=== PATIENT | male | born 1995 | race Caucasian/White ===

== ENCOUNTER 2018-04-02 17:37 | Emergency (ER) | payer OTHER, SELFPAY ==
[2018-04-02 17:39] VITALS: BP 162/94; PULSE 84; RESP 12; TEMP 36.9; O2SAT 100
--- NOTE | 2018-04-02 18:01 | ED.WOUNDLAC ---
HPI - Wound/Laceration <BENI Mabry - Last Filed: 04/02/18 18:44> General Chief Complaint: Wound/Laceration Stated Complaint: STEPPED ON JEANNIE NAIL RT FOOT Time Seen by Provider: 04/02/18 17:52 Source: patient Mode of arrival: ambulatory Limitations: no limitations History of Present Illness HPI narrative: Patient Presents with chief complaint of stepping on a jeannie nail today. He states it was a 5 in nail through the 2 in of wood through his boat into the bottom of his right foot. He is requesting tetanus as he does not know when his last one was. He states that it happened today while at work. He denies any fevers nausea vomiting diarrhea. He denies any numbness or tingling in his foot. He states that he does not wantaging or antibiotics, just wants a tetanus. Related Data Home Medications Medication Instructions Recorded Confirmed No Known Home Medications 04/02/18 04/02/18 Allergies Allergy/AdvReac Type Severity Reaction Status Date / Time No Known Drug Allergies Allergy Verified 04/02/18 17:42 Review of Systems <[facility] - Last Filed: 04/02/18 18:44> Review of Systems GENERAL: Denies chills, fatigue, malaise, fever, sweats. HEENT: Denies sinus pain, ear pain, sore throat, difficulty swallowing, dizziness. RESPIRATORY: Denies dyspnea, cough, wheezing, hemoptysis, sputum. CARDIOVASCULAR: Denies chest pain, palpitations, orthopnea, edema, GASTROINTESTINAL: Denies nausea, vomiting, abdominal pain, diarrhea, constipation, melena. : Denies dysuria, frequency, incontinence, hematuria, urinary retention. MUSCULOSKELETAL: see HPI SKIN: See HPI NEUROLOGIC: Denies weakness, headache, numbness, change in speech, confusion, seizures, incoordination. PSYCHIATRIC: No concerning psychosocial issues. 12 point review of systems is negative except for those stated above Exam <[facility] - Last Filed: 04/02/18 18:44> Narrative Exam Narrative: GENERAL: Denies chills, fatigue, malaise, fever, sweats. HEENT: Denies sinus pain, ear pain, sore throat, difficulty swallowing, dizziness. RESPIRATORY: Denies dyspnea, cough, wheezing, hemoptysis, sputum. CARDIOVASCULAR: Denies chest pain, palpitations, orthopnea, edema, GASTROINTESTINAL: Denies nausea, vomiting, abdominal pain, diarrhea, constipation, melena. : Denies dysuria, frequency, incontinence, hematuria, urinary retention. MUSCULOSKELETAL: Full range of motion noted right foot. Positive pedal pulses right foot. Capillary refill less than 2 sec all toes right foot. No palpable foreign bodies. SKIN: Small puncture wound 2 mm right ball of right foot. No erythema, pus or drainage. Small black flecks visible. NEUROLOGIC: Denies weakness, headache, numbness, change in speech, confusion, seizures, incoordination. PSYCHIATRIC: No concerning psychosocial issues. 12 point review of systems is negative except for those stated above Initial Vital Signs Initial Vital Signs: Vital Signs Temperature 98.4 F 04/02/18 17:39 Pulse Rate 84 04/02/18 17:39 Respiratory Rate 12 04/02/18 17:39 Blood Pressure 162/94 H 04/02/18 17:39 Pulse Oximetry 100 04/02/18 17:39 <Staci Hernandez DO - Last Filed: 04/02/18 22:37> Initial Vital Signs Initial Vital Signs: Vital Signs Temperature 98.4 F 04/02/18 17:39 Pulse Rate 84 04/02/18 17:39 Respiratory Rate 12 04/02/18 17:39 Blood Pressure 162/94 H 04/02/18 17:39 Pulse Oximetry 100 04/02/18 17:39 Course <ANA MARIA Mabry-TROY - Last Filed: 04/02/18 18:44> Course Narrative: Foot wound was soaked in water and chlorhexidine. splinter forceps were used to remove 1 mm of black foreign body. Tetanus was updated. Orders Ordered: Discontinued Medications Diphtheria/Tetanus/Acell Pertussis (Adacel) 0.5 ml IM .ONCE ONE Stop: 04/02/18 17:59 Last Admin: 04/02/18 18:04 Dose: 0.5 ml Vital Signs - 8 hr 04/02/18 17:39 04/02/18 18:56 Temperature 98.4 F Pulse Rate 84 87 Respiratory Rate 12 16 Blood Pressure 162/94 H Blood Pressure [Right Arm] 151/89 H Pulse Oximetry 100 100 <Staci Hernandez DO - Last Filed: 04/02/18 22:37> Orders Ordered: Discontinued Medications Diphtheria/Tetanus/Acell Pertussis (Adacel) 0.5 ml IM .ONCE ONE Stop: 04/02/18 17:59 Last Admin: 04/02/18 18:04 Dose: 0.5 ml Vital Signs - 8 hr 04/02/18 17:39 04/02/18 18:56 Temperature 98.4 F Pulse Rate 84 87 Respiratory Rate 12 16 Blood Pressure 162/94 H Blood Pressure [Right Arm] 151/89 H Pulse Oximetry 100 100 MDM - Wound/Laceration <ANA MARIA Mabry-BC - Last Filed: 04/02/18 18:44> MDM Narrative Medical decision making narrative: Patient presents with chief complaint of puncture wound to right foot with jeannie nail. He requests tetanus. Tetanus was updated. Patient declines foot x-ray at this point time. He states he does not want antibiotics. He plans on following up with primary care provider for new or worsening symptoms. I discussed return precautions of signs of infection. I discussed warm water soaks. He had no questions or concerns upon discharge. Discharge Plan Departure Patient Disposition: Home Clinical Impression: Puncture wound of foot, right Discharge Date/Time: 04/02/18 18:59 Interventions: ED Discharge Assessment Last Done: 04/02/18 18:53 Instructions: DI for Puncture Wound Activity Restrictions/Additional Instructions: We updated your tetanus today. Please monitor your puncture wound for signs and symptoms of infection this includes fever, pus, redness spreading from the site. Please follow-up with primary care provider if you have any concerns. Prescriptions: No Action No Known Home Medications RF: 0 <Staci Hernandez DO - Last Filed: 04/02/18 22:37> Cosign ED Attending Marlee Attestation: I was immediately available in the department for consultation. Documentation has been reviewed. I agree with assessment and plan.
[2018-04-02] MEDS: TET,DIPH,PERTUSS(ACELL),VAC/PF 0.5 ML SYRINGE IM (18:04)
[2018-04-02 18:56] VITALS: BP 151/89; PULSE 87; RESP 16; O2SAT 100
== END 2018-04-02 18:59 | disposition home or self-care (01) ==
LOC: ED 18:40
PROVIDERS: Emergency Provider Nurse Practitioner Family
DX: S91.331A Puncture wound without foreign body, right foot, initial encounter (principal); W45.0XXA Nail entering through skin, initial encounter
CPT/HCPCS: 90471; 99283; 90715

== ENCOUNTER 2025-03-21 12:35 | Emergency (ER) | payer OTHER, SELFPAY ==
[2025-03-21 12:43] VITALS: BP 171/87; PULSE 83; RESP 18; TEMP 36.7; O2SAT 99; BMI 34.7
--- NOTE | 2025-03-21 13:24 | PC.NURSE ---
Patient states he cleaned the injury with hydrogen peroxide. During assessment of the wound, removed 3 OTC steri strips that the patient applied, cleaned with saline and dressed with saline soaked gauze. Patient states he believes his tetanus was updated last year with injury he sustained to his hand and was treated for at [facility].
--- NOTE | 2025-03-21 14:29 | ED.WOUNDLAC ---
HPI - Wound/Laceration General Chief Complaint: Wound/Laceration Stated Complaint: laceraction from chainsaw R leg 2-3 hours Time Seen by Provider: 03/21/25 12:44 Source: patient Mode of arrival: Ambulatory History of Present Illness HPI narrative: 29-year-old woman presents with chain saw accident to the right knee. His tetanus is up-to-date. Denies any numbness, tingling, down the legs, fever, chills, body, gait instability. Other than what is stated 14 point review of system is negative. Related Data Home Medications ?Medication ?Instructions ?Recorded ?Confirmed No Known Home Medications 04/02/18 04/02/18 Allergies Allergy/AdvReac Type Severity Reaction Status Date / Time No Known Drug Allergies Allergy Verified 03/21/25 12:43 Review of Systems Review of Systems ROS Unobtainable: All systems reviewed & are unremarkable except as noted in HPI and below Patient History tobacco type: smokeless tobacco Exam Narrative Exam Narrative: GENERAL: [29} year old patient appears stated age. Well-developed patient, in mild distress. HEAD: Atraumatic. Normocephalic. EYES: Pupils equal round and reactive. Extraocular motions intact. No scleral icterus. No injection or drainage. ENT: Nose without bleeding, purulent drainage. Throat without erythema, tonsillar hypertrophy or exudate. Airway patent. NECK: Trachea midline. Non tender EXTREMITIES: No edema or joint tenderness. R distal anterior lower thigh horiziontal 3x3cm laceration, motor sensory intact +2 DP +2PT cap refill <2secs BACK: Nontender without deformity or crepitance. No flank tenderness. NEURO: AOx3. SKIN: No rash or erythema of visible areas Initial Vital Signs Initial Vital Signs: Vital Signs Temperature 98.1 F 03/21/25 12:43 Pulse Rate 83 03/21/25 12:43 Respiratory Rate 18 03/21/25 12:43 Blood Pressure 171/87 H 03/21/25 12:43 Pulse Oximetry 99 03/21/25 12:43 Oxygen Delivery Method Room Air 03/21/25 12:43 Procedures Laceration Repair Laceration 1: Time of procedure: 14:55 Side (If applicable): right Size (cm): 4 Description: linear Depth: involves muscle layer Local Anesthetic: lidocaine 1% and with epi Amount of anesthesia used (mL): 4 Pre-repair: wound explored, irrigated extensively and deep structures intact Skin layer closed with: nylon Skin layer suture size: 4-0 Number of sutures: 11 Course Vital Signs Vital signs: Vital Signs - 8 hr 03/21/25 12:43 Temperature 98.1 F Pulse Rate 83 Respiratory Rate 18 Blood Pressure 171/87 H Pulse Oximetry 99 Oxygen Delivery Method Room Air MDM - Wound/Laceration MDM Narrative Medical decision making narrative: Vital signs, nurse triage note, medication list, previous ER visits, and all imaging studies reviewed. Patient given Discharge Plan Departure Prescriptions: No Action No Known Home Medications Referrals: Larry Rodriguez MD [Primary Care Provider, Family Practice]
[2025-03-21] MEDS: LIDOCAINE 1% W/EPI 10ML 4 ML INJ (14:31)
[2025-03-21] MEDS: BACITRACIN OINT 0.9 GM PCKT 1 APPLIC TOP (15:04)
[2025-03-21 15:11] VITALS: BP 156/78; PULSE 79; RESP 16; O2SAT 97
== END 2025-03-21 15:33 | disposition home or self-care (01) ==
PROVIDERS: Emergency Provider Family Medicine; PCP Family Medicine
DX: S89.91XA Unspecified injury of right lower leg, initial encounter (principal); W29.3XXA Contact with powered garden and outdoor hand tools and machinery, initial encounter
CPT/HCPCS: 12032; 99283